=== PATIENT | female | born 1935 | race Two or more races ===

== ENCOUNTER 2024-01-04 14:06 | Emergency (ER) | payer OTHER ==
[~2024-01-04] VITALS: Ht 160 cm; Wt 62.1 kg
[2024-01-04] MEDS ORDERED: ATORVASTATIN CA20 MG PO (14:33)
[2024-01-04] MEDS ORDERED: ASA81 MG PO (14:33)
[2024-01-04] MEDS ORDERED: AVAPRO300 MG PO (14:34)
[2024-01-04] MEDS ORDERED: FENOFIBRATE43 MG PO (14:34)
[2024-01-04] MEDS ORDERED: CALCIUM + D SO1 EACH PO (14:35)
[2024-01-04] MEDS ORDERED: FAMOTIDINE/PF 20 MG in 0.9 % SODIUM CHLORIDE 8 ML IV PUSH STA (16:28)
[2024-01-04 16:53] LABS: HEMATOCRIT 35.3 % (36.0-45.00); MEAN CELL VOLUME 89.8 fL (80.00-100.00); MEAN CORPUSCULAR HEMOGLOBIN 30.6 pg (27.00-32.0); MEAN CORPUSCULAR HGB CONC 34.1 g/dl (32.0-36.0); PLATELET COUNT 268 K/uL (150-450); RED BLOOD COUNT 3.93 M/uL (4.00-6.00); RED CELL DISTRIBUTION WIDTH 15.7 % (11.5-14.5)
[2024-01-04 17:15] LABS: ALBUMIN 4.4 gm/dL (3.4-5.0); BILIRUBIN TOTAL 0.62 mg/dL (0.3-1.2); CALCIUM 9.7 mg/dL (8.5-10.1); CREATININE SERUM 0.69 mg/dL (0.55-1.02); GFR 80.67; GLOBULINA 3.5 G/DL (2.4-3.5); POTASSIUM 4.33 mEq/L (3.5-5.1); TOTAL PROTEIN 7.9 gm/dL (6.4-8.2)
[2024-01-04] MEDS ORDERED: PEPCID AC20 MG PO (17:23)
== END 2024-01-04 18:14 | disposition home or self-care (01) ==
LOC: ER 14:07
PROVIDERS: General Practice
DX: R11.0 Nausea (principal)
CPT/HCPCS: 36415; 96365; 99282; J3490